=== PATIENT | female | born 1950 | race Caucasian/White ===

== ENCOUNTER 2024-04-05 13:54 | Inpatient (IN) | payer MEDICARE, MEDICAID ==
[~2024-04-05] VITALS: Ht 160 cm; Wt 76.9 kg
[2024-04-05] MEDS ORDERED: ONDANSETRON HCL/PF 4 MG/2 ML VIAL IVP PRN (19:00)
[2024-04-05 20:00] VITALS: BP 120/56; TEMP 97.7; O2SAT 97
[2024-04-05] MEDS: IV NS 0.9% 1,000 ML IV PRN (20:36)
[2024-04-05] MEDS: HEPARIN SODIUM, PORCINE 5000 UNITS/1 ML VIAL SQ SCH (20:49)
[2024-04-06] VITALS: BP_SYST 120; BP_SYST 152; BP_DIAS 56; BP_DIAS 75; TEMP 97.7; TEMP 97.8; O2SAT 100; O2SAT 97
[2024-04-06 04:00] VITALS: BP_SYST 119; BP_SYST 120; BP_SYST 151; BP_DIAS 73; BP_DIAS 80; BP_DIAS 95; TEMP 98.8; O2SAT 96
[2024-04-06 06:57] LABS: BASOPHILS # (AUTO) 0.1 K/uL (0.0-0.2); BASOPHILS % (AUTO) 0.8 % (0.0-2.0); EOSINOPHILS # (AUTO) 0.1 K/uL (0.0-0.7); EOSINOPHILS % (AUTO) 1.4 % (0.0-6.0); HEMATOCRIT 32 % (33-45); HEMOGLOBIN 10.9 g/dL (11.5-14.8); LYMPHOCYTES # (AUTO) 1.6 K/uL (0.8-4.8); LYMPHOCYTES % (AUTO) 17.5 % (20.0-44.0); MEAN CORPUSCULAR HEMOGLOBIN 32 PG (26.0-33.0); MEAN CORPUSCULAR HGB CONC 34 g/dl (31.0-36.0); MEAN CORPUSCULAR VOLUME 94 fL (82-100); MONOCYTES # (AUTO) 0.7 K/uL (0.1-1.30); MONOCYTES % (AUTO) 7.5 % (2.0-12.0); NEUTROPHILS # (AUTO) 6.6 K/uL (1.8-8.9); NEUTROPHILS % (AUTO) 72.8 % (43.0-81.0); PLATELET COUNT (AUTO) 199 K/uL (150-450); RED BLOOD CELL COUNT(AUTO) 3.38 MIL/uL (4.0-5.2); RED CELL DISTRIBUTION WIDTH 13.7 % (11.5-15.0); WHITE BLOOD COUNT (AUTO) 9.1 K/uL (4.3-11.0)
[2024-04-06 07:30] VITALS: BP 160/81; TEMP 98.1; O2SAT 95
[2024-04-06 07:52] LABS: CALCIUM, SERUM 8.7 mg/dL (8.5-10.1); CREATININE 1.9 mg/dL (0.6-1.3); MAGNESIUM 2.6 mg/dL (1.8-2.4); PHOSPHORUS 3.3 mg/dL (2.5-4.9); POTASSIUM 4.1 mmol/L (3.5-5.1)
[2024-04-06 08:15] LABS: THYROID STIMULATING HORMONE 1.52 uIU/mL (0.358-3.74)
[2024-04-06] MEDS: PANTOPRAZOLE 40 MG TABLET.DR PO SCH (08:20)
[2024-04-06 10:01] LABS: THYROID STIMULATING HORMONE 1.56 uIU/mL (0.358-3.74)
[2024-04-06] MEDS ORDERED: MINO10TA2 PO (10:14)
[2024-04-06] MEDS ORDERED: ALLO100T PO (10:14)
[2024-04-06] MEDS ORDERED: MAGN400T26 PO (10:14)
[2024-04-06] MEDS ORDERED: LEVO50TA8 PO (10:14)
[2024-04-06] MEDS ORDERED: MECL-159 PO (10:14)
[2024-04-06] MEDS ORDERED: CLON0.1T PO (10:14)
[2024-04-06] MEDS ORDERED: CALC500T52 PO (10:14)
[2024-04-06] MEDS ORDERED: FURO-144 PO (10:14)
[2024-04-06] MEDS ORDERED: [UNRECOGNIZED DRUG - OTHER] PO (10:14)
[2024-04-06] MEDS ORDERED: ALEN70TA80 PO (10:14)
[2024-04-06] MEDS ORDERED: AMLO10TA4 PO (10:14)
[2024-04-06] MEDS ORDERED: BACL10TA PO (10:14)
[2024-04-06] MEDS ORDERED: MELO-105 PO (10:14)
[2024-04-06] MEDS ORDERED: GLIP5TAB13 PO (10:14)
[2024-04-06] MEDS ORDERED: EMPA1TAB PO (10:14)
[2024-04-06] MEDS ORDERED: SIMV20TA2 PO (10:14)
[2024-04-06] MEDS ORDERED: ACET-868 PO (10:14)
[2024-04-06] MEDS ORDERED: ESOM40CA PO (10:14)
[2024-04-06] MEDS ORDERED: METO25TA4 PO (10:14)
[2024-04-06] MEDS ORDERED: FERR325T23 PO (10:14)
[2024-04-06] MEDS ORDERED: VITAMIN C WITH ZINC PO (10:14)
[2024-04-06] MEDS ORDERED: MENT118G TP (10:14)
[2024-04-06] MEDS ORDERED: OMEP20CA15 PO (10:14)
[2024-04-06] MEDS: ACETAMINOPHEN 325 MG TABLET PO PRN (15:32)
[2024-04-06 16:00] VITALS: BP 157/86; TEMP 98.2; O2SAT 99
[2024-04-06 20:00] VITALS: BP 172/82; TEMP 98.1; O2SAT 100
[2024-04-06 23:00] VITALS: BP 182/72; TEMP 97.1; O2SAT 100
[2024-04-06] MEDS: CLONIDINE HCL 0.1 MG TABLET PO PRN (23:09)
[2024-04-07] VITALS: BP 179/78; TEMP 98.6; O2SAT 97
[2024-04-07 02:00] VITALS: BP 147/77; TEMP 98.1; O2SAT 100
[2024-04-07 04:00] VITALS: BP 183/96; TEMP 98.1; O2SAT 98
[2024-04-07 08:00] VITALS: BP 158/79; TEMP 98.3; O2SAT 96
[2024-04-07 08:48] LABS: BASOPHILS # (AUTO) 0.1 K/uL (0.0-0.2); BASOPHILS % (AUTO) 0.5 % (0.0-2.0); EOSINOPHILS # (AUTO) 0.1 K/uL (0.0-0.7); EOSINOPHILS % (AUTO) 0.5 % (0.0-6.0); HEMATOCRIT 33 % (33-45); LYMPHOCYTES # (AUTO) 1.4 K/uL (0.8-4.8); LYMPHOCYTES % (AUTO) 10.6 % (20.0-44.0); MEAN CORPUSCULAR HEMOGLOBIN 31 PG (26.0-33.0); MEAN CORPUSCULAR HGB CONC 34 g/dl (31.0-36.0); MEAN CORPUSCULAR VOLUME 94 fL (82-100); MONOCYTES # (AUTO) 0.9 K/uL (0.1-1.30); MONOCYTES % (AUTO) 7.1 % (2.0-12.0); NEUTROPHILS # (AUTO) 10.5 K/uL (1.8-8.9); NEUTROPHILS % (AUTO) 81.3 % (43.0-81.0); PLATELET COUNT (AUTO) 210 K/uL (150-450); RED BLOOD CELL COUNT(AUTO) 3.49 MIL/uL (4.0-5.2); RED CELL DISTRIBUTION WIDTH 13.4 % (11.5-15.0); WHITE BLOOD COUNT (AUTO) 12.9 K/uL (4.3-11.0)
[2024-04-07 09:47] LABS: ALBUMIN 3.1 g/dL (3.4-5.0); BILIRUBIN,TOTAL 0.3 mg/dL (0.2-1.0); CALCIUM, SERUM 8.5 mg/dL (8.5-10.1); CREATININE 1.8 mg/dL (0.6-1.3); MAGNESIUM 1.9 mg/dL (1.8-2.4); PHOSPHORUS 2.3 mg/dL (2.5-4.9); TOTAL PROTEIN, SERUM 6.9 g/dL (6.4-8.2)
[2024-04-07] MEDS: hydrALAZINE HCL 50 MG TABLET PO SCH (10:19)
[2024-04-07] MEDS: NITROGLYCERIN 30 GM TUBE TP SCH (10:20)
[2024-04-07] MEDS: glipiZIDE 5 MG TABLET PO SCH (10:38)
[2024-04-07] MEDS: METOPROLOL SUCCINATE 25 MG TAB.SR.24H PO SCH (10:38)
[2024-04-07] MEDS: SIMVASTATIN 20 MG TABLET PO SCH (10:38)
[2024-04-07] MEDS: LEVOTHYROXINE SODIUM 50 MCG TABLET PO SCH (10:38)
[2024-04-07] MEDS: ALLOPURINOL 100 MG TABLET PO SCH (10:38)
[2024-04-07] MEDS: AMLODIPINE BESYLATE 10 MG TABLET PO SCH (10:39)
[2024-04-07 16:00] VITALS: BP 155/73; TEMP 98.1; O2SAT 99
[2024-04-07] MEDS: K PHOS NEUTRAL 250 MG TABLET PO ONE (16:02)
[2024-04-07 20:00] VITALS: BP 159/73; TEMP 98.6; O2SAT 96
[2024-04-08] VITALS (8 sets, daily range): BP systolic 132–169; BP diastolic 63–80; TEMP 97.5–99.1; O2SAT 96–100
[2024-04-08 07:17] LABS: BILIRUBIN,TOTAL 0.4 mg/dL (0.2-1.0); CALCIUM, SERUM 8.5 mg/dL (8.5-10.1); CREATININE 1.8 mg/dL (0.6-1.3); MAGNESIUM 1.8 mg/dL (1.8-2.4); PHOSPHORUS 3.3 mg/dL (2.5-4.9); POTASSIUM 3.9 mmol/L (3.5-5.1); TOTAL PROTEIN, SERUM 7.1 g/dL (6.4-8.2)
[2024-04-08 07:48] LABS: BASOPHILS % (AUTO) 0.3 % (0.0-2.0); EOSINOPHILS % (AUTO) 0.3 % (0.0-6.0); HEMATOCRIT 35 % (33-45); HEMOGLOBIN 11.4 g/dL (11.5-14.8); LYMPHOCYTES # (AUTO) 1.4 K/uL (0.8-4.8); LYMPHOCYTES % (AUTO) 11.5 % (20.0-44.0); MEAN CORPUSCULAR HEMOGLOBIN 32 PG (26.0-33.0); MEAN CORPUSCULAR HGB CONC 33 g/dl (31.0-36.0); MEAN CORPUSCULAR VOLUME 97 fL (82-100); MONOCYTES # (AUTO) 0.9 K/uL (0.1-1.30); MONOCYTES % (AUTO) 7.7 % (2.0-12.0); NEUTROPHILS # (AUTO) 9.6 K/uL (1.8-8.9); NEUTROPHILS % (AUTO) 80.2 % (43.0-81.0); PLATELET COUNT (AUTO) 190 K/uL (150-450); RED BLOOD CELL COUNT(AUTO) 3.57 MIL/uL (4.0-5.2); RED CELL DISTRIBUTION WIDTH 13.9 % (11.5-15.0)
[2024-04-08] MEDS ORDERED: predniSONE 20 MG TABLET PO SCH (12:00)
[2024-04-08] MEDS: hydrALAZINE HCL 50 MG TABLET PO SCH (12:16)
[2024-04-08] MEDS: COLCHICINE 0.6 MG TABLET PO SCH (12:21)
[2024-04-08] MEDS: MECLIZINE HCL 12.5 MG TABLET PO PRN (15:54)
[2024-04-08] MEDS: BLOOD SUGAR DIAGNOSTIC 1 EACH STRIP IN SCH (17:04)
[2024-04-09 08:00] VITALS: BP 154/74; TEMP 98.2; O2SAT 97
[2024-04-09] MEDS ORDERED: HYDR-4077 PO (11:03)
[2024-04-09] MEDS ORDERED: Colchicine PO (11:03)
[2024-04-09 16:00] VITALS: BP 156/74; TEMP 98.2; O2SAT 95
[2024-04-09 16:23] VITALS: BP 156/74
== END 2024-04-09 19:26 | DRG 74 ==
LOC: TELE 16:58 → MED 04-08 12:34
PROVIDERS: ADMIT Nurse Practitioner Family; ATTEND Internal Medicine
DX: G90.89 Other disorders of autonomic nervous system (principal); N18.4 Chronic kidney disease, stage 4 (severe); E87.1 Hypo-osmolality and hyponatremia; I12.9 Hypertensive chronic kidney disease with stage 1 through stage 4 chronic kidney disease, or unspecified chronic kidney disease; E11.22 Type 2 diabetes mellitus with diabetic chronic kidney disease; F41.9 Anxiety disorder, unspecified; G47.00 Insomnia, unspecified; M10.9 Gout, unspecified; E78.5 Hyperlipidemia, unspecified; G43.909 Migraine, unspecified, not intractable, without status migrainosus; D63.1 Anemia in chronic kidney disease; D50.9 Iron deficiency anemia, unspecified
CPT/HCPCS: 36415; 73610-TC; 80048-TC; 80053-TC; 80061-TC; 82728-TC; 82962-TC; 83540-TC; 83735-TC; 84100-TC; 84439-TC; 84443-TC; 85025-TC; 93307-TC; 93880-TC; 93971-TC; 97110-TC; 97116-TC; 97530-TC; A4223; G0378; J1644; J7030; J8597